=== PATIENT | female | born 1940 | race Caucasian/White ===

== ENCOUNTER 2023-08-17 14:18 | Inpatient (IN) ==
--- NOTE | 2023-08-17 15:02 | ED Triage Note ---
Date of Service August 17, 2023 History of Present Illness This patient was briefly evaluated while in triage. An abbreviated physical exam was performed. This patient is a 83-year-old Female who presents to the ED for evaluation following referral by PCP after abnormal CT abd/pelvis results. 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 Physical Exam Constitutional: alert and oriented x3. no acute distress. HEENT: normocephalic, atraumatic. normal conjunctiva.PERRLA. EOM's grossly intact. Respiratory: lungs are clear to auscultation without wheezes, rhonchi, or rales bilaterally. equal chest rise. normal respiratory effort, no accessory muscle use. Cardiovascular: normal heart sounds without murmur. regular rate and rhythm. GI: abdomen is soft, lower quadrant tenderness. No rebound tenderness or guarding. MSK: moves all 4 extremities spontaneously Psych:appropriate mood and affect. Initial orders for labs and / or imaging were placed and patient was placed in the waiting area until a bed is available. Please see further documentation for the full ED course.
[2023-08-17] MEDS ORDERED: Heparin IV Adult Wt-Based Standard w/ INITIAL Bolus Protocol IV STA (15:41)
[2023-08-17] MEDS ORDERED: Heparin IV Adult Wt-Based Standard w/ INITIAL Bolus Protocol IV SCH (15:50)
[2023-08-17] MEDS ORDERED: HEPARIN SOD (PORCINE) 1000 UNIT/ML IV ONE ×2 (15:56→16:00)
[2023-08-17 15:58] LABS: Basophils # (auto) 0.05 K/uL (0.00-0.20); Basophils % (auto) 0.4 %; Eosinophils # (auto) 0.02 K/uL (0.00-0.50); Eosinophils % (auto) 0.2 %; Hematocrit (blood only) 34.6 % (37.0-47.0); Hemoglobin 11.3 g/dl (12.0-16.0); Immature Granulocytes # (auto) 0.07 K/uL (0.01-0.20); Immature Granulocytes % (auto) 0.6 %; Lymphocytes # (auto) 1.24 K/uL (1.20-3.40); Lymphocytes % (auto) 10.9 %; Mean Corpuscular Hemoglobin 29.3 pg (25.0-34.0); Mean Corpuscular Hgb Conc 32.7 g/dL (32.0-36.0); Mean Corpuscular Volume 89.6 fL (80.0-100.0); Mean Platelet Volume 9.9 fL (9.4-12.4); Monocytes # (auto) 0.95 K/uL (0.11-0.59); Monocytes % (auto) 8.3 %; Neutrophils # (auto) 9.09 K/uL (1.40-6.50); Neutrophils % (auto) 79.6 %; Platelet Count 272 K/uL (130-400); RDW Coefficient of Variation 14.1 % (11.5-14.5); RDW Standard Deviation 45.5 fL (36.4-46.3); Red Blood Count 3.86 M/uL (4.20-5.40); White Blood Count 11.42 K/ul (4.8-10.8)
[2023-08-17 15:58] LABS: iSTAT Creatinine 0.8 mg/dl (0.6-1.3); iSTAT Hemoglobin 11.6 g/dl (12.0-16.0); iSTAT Ionized Calcium 1.19 mmol/l (1.12-1.32); iSTAT Potassium 4.5 mmol/L (3.3-5.0)
[2023-08-17] MEDS ORDERED: HEPARIN SODIUM/DEXTROSE 25,000 UNITS/500 ML BAG IV SCH (16:00)
[2023-08-17] MEDS ORDERED: SODIUM CHLORIDE 0.9% 500 ML IV ONE (16:03)
[2023-08-17 16:14] LABS: Albumin Globulin Ratio 1.5 (0.9-2); Albumin Level 4.1 gm/dl (3.4-5.0); BUN Creatinine Ratio 28.2 (10-20); Bilirubin,Total 0.6 mg/dl (0.2-1.0); Calcium 9.3 mg/dl (8.6-10.3); Creatinine Clr Calc Pharmacy 44.8 ml/min; Est GFR (African American) 73.4 ml/min; Est GFR (Non-African American) 63.4 ml/min; Globulin 2.7 gm/dl (2.5-4.0); Potassium 4.4 mmol/L (3.5-5.1); Total Protein 6.8 gm/dl (6.0-8.3)
[2023-08-17 16:19] LABS: Troponin I High Sensitivity 7.3 pg/ml (0-14)
[2023-08-17 16:38] LABS: INR 1.1 (0.9-1.1); Partial Thromboplastin Time 27.1 Seconds (21.0-31.0); Prothrombin Time 11.6 Seconds (9.0-12.0)
--- NOTE | 2023-08-17 16:44 | XRay Report ---
SINGLE VIEW CHEST CLINICAL HISTORY: Metastatic disease. FINDINGS: An AP, portable, upright chest radiograph is compared to study dated 06/21/2013. Correlation is made with today's abdominal CT scan. The cardiomediastinal silhouette is unremarkable. Numerous p ulmonary nodules are seen throughout both lungs. There are small pleural effusions with bibasilar con solidation. No pneumothorax is seen. The skeletal structures are osteopenic. The bony thorax is gross ly intact. IMPRESSION: 1. Small pleural effusions with bibasilar consolidation. This results atelectasis and metastatic pleu ral disease when correlated with today's CT scan. 2. Additional pulmonary metastases are seen throughout both lungs. ACT 112: Negative or not required by law. Electronically signed by: William Diez M.D. 08/17/2023 4:43 PM
--- NOTE | 2023-08-17 17:12 | Emergency Department Note ---
Impression & Plan Pulmonary embolism, Abdominal malignancy ED Provider Note NAME: VLADIMIR WHEAT AGE: 83 SEX: F : 1940 ARRIVES VIA: Walk-In INFORMANT: Patient ED PROVIDER(S): Michael Savage DO CHIEF COMPLAINT: PEs HPI: Patient is an 83-year-old female who presents to the ER referred in for blood clots in the lungs as well as [place] diagnosed cancer. She notes that she has been having some abdominal pain and swelling for the past month. She denies any headache or change in vision. She does not think that she is short of breath. No chest pain. No dysuria, urgency, or frequency. She denies any history of any cancer. ADDITIONAL HISTORY OBTAINED: Per HPI Chronic Medical/Social Conditions Affecting Care: Per HPI PAST MEDICAL HISTORY:See Below PAST SURGICAL HISTORY:See Below FAMILY HISTORY:See Below SOCIAL HISTORY:See Below HOME MEDICATIONS:See Below ALLERGIES:See Below VITALS:See Below PHYSICAL EXAMINATION: GENERAL: Sitting up in bed, alert, well appearing, well nourished, no distress, non-toxic EYE EXAM: normal conjunctiva. OROPHARYNX: mucous membranes are moist LUNGS: Clear to auscultation. Normal chest wall mechanics HEART: no murmurs, S1 normal and S2 normal ABDOMEN: abdomen soft, non-tender, normo-active bowel sounds, no masses, no rebound or guarding. UPPER EXTREMITIES: upper extremities are grossly normal. LOWER EXTREMITIES: No pitting edema. NEURO EXAM: Normal sensorium, cranial nerves II-XII grossly intact, normal speech, no gross weakness of arms, no gross weakness of legs. MEDICAL DECISION MAKING: Patient is an 83-year-old female who presents ER for above-stated complaint. IV was established blood work is obtained. Labs show mild leukocytosis 11,000. Mild anemia 11.3. INR unremarkable. BMP with a CO2 of 20. LFTs bilirubin was unremarkable. Troponin was negative. Lipase was normal. She was mildly tachycardic. She is not hypoxic. She was given IV fluids. She denies any coughing up blood, vomiting blood, urinating blood or black/dark tarry stools. No bright red blood per rectum. No recent trauma or surgery. She was placed on heparin drip and given a bolus. She was updated bedside. Chest x-ray was obtained. She was discussed with Dr. Lázaro Tinajero for new onset cancer and newly diagnosed PEs. External Records Reviewed: CT performed from earlier today was reviewed and showed PEs and abdominal cancer Consults/Care Managements Discussions: Per MDM Triage Nursing notes reviewed. Limited review of prior medical records performed Vital Signs: reviewed and remarkable for tachycardic Differential diagnosis: Differential diagnoses includes but is not limited to pneumonia, bronchitis, COPD/Asthma exacerbation, pneumothorax, pulmonary embolism, congestive heart failure, acute coronary syndrome ER treatment provided: See below Diagnostics interpreted by me include EKG and cardiac monitoring as listed below: -Cardiac Monitoring: An order was placed for continuous cardiac monitoring. The monitor shows a rate of 90 with sinus rhythm. -ECG: Sinus rhythm rate of 94 Normal axis No PVCs Low voltage QTc 375 -Laboratory studies:Interpreted by me as stated above in MDM and shown below. Imaging studies: Xrays: As interpreted by me: Portable AP upright 1 view of the chest shows pulmonary edema and questionable infiltrates likely metastatic lesions CTs show: none Procedures:none Critical Care: I have personally spent 31 minutes of critical care time in the direct management of this patient. This includes bedside care, interpretation of diagnostic studies, and testing, discussion with consultants, patient, and family members, and other required patient management activities. This 31 minutes is in excess of all separately billable procedures. Past Med/Surg History Medical History (Updated 08/17/23 @ 17:12 by Michael aSvage DO) Diarrhea Nausea Social History Smoking Status: Former smoker Preferred Language: Yakut Feels Safe at Home: Yes Allergies Allergies Allergy/AdvReac Type Severity Reaction Status Date / Time Penicillins Allergy Intermediate rash Verified 08/17/23 15:59 Sulfa (Sulfonamide AdvReac Intermediate lower ext Verified 08/17/23 15:59 Antibiotics) leg numbness Home Meds Home Medications Medication Instructions Recorded Confirmed aspirin 81 mg tablet,delayed 81 mg PO 3XWK 07/29/23 08/17/23 release (Adult Low Dose Aspirin) atorvastatin 80 mg tablet (Lipitor) 40 mg PO DAILY 07/29/23 08/17/23 clopidogrel 75 mg tablet (Plavix) 75 mg PO DAILY 07/29/23 08/17/23 metformin 1,000 mg tablet 1,000 mg PO BID 07/29/23 08/17/23 metoprolol succinate 25 mg 25 mg PO QPM 07/29/23 08/17/23 tablet,extended release 24 hr omega 4-tay-oxo-fish oil 1,000 mg 1 cap PO DAILY 07/29/23 08/17/23 (120 mg-180 mg) capsule (Fish Oil) pantoprazole 40 mg tablet,delayed 40 mg PO DAILY 07/29/23 08/17/23 release potassium chloride 20 mEq 10 meq PO DAILY 07/29/23 08/17/23 tablet,extended release furosemide 20 mg tablet 20 mg PO DAILY 08/17/23 08/17/23 magnesium oxide 250 mg PO BID 08/17/23 08/17/23 Results & Data (ED) Vital Signs Vital Signs - 24 hr 08/17/23 14:54 08/17/23 15:25 08/17/23 15:30 Temperature 36.4 C L Temperature Source Oral Pulse Rate 104 H 99 H 97 H Pulse Rate from SpO2 Sensor 100 H Respiratory Rate 18 20 18 Blood Pressure 142/82 H Blood Pressure Mean 102 Pulse Oximetry 98 97 Oxygen Delivery Method Room Air Sepsis New/Unexplained Change in Mental Status No Sepsis Action Taken by Nursing No Action Required 08/17/23 15:33 08/17/23 15:34 08/17/23 15:34 Temperature Temperature Source Pulse Rate 97 H 96 H Pulse Rate from SpO2 Sensor Respiratory Rate 18 Blood Pressure 151/81 H Blood Pressure Mean 118 Pulse Oximetry Oxygen Delivery Method Sepsis New/Unexplained Change in Mental Status Sepsis Action Taken by Nursing 08/17/23 16:00 08/17/23 16:00 08/17/23 16:30 Temperature Temperature Source Pulse Rate 93 H Pulse Rate from SpO2 Sensor Respiratory Rate 20 Blood Pressure 151/77 H 141/98 H Blood Pressure Mean 117 116 Pulse Oximetry Oxygen Delivery Method Sepsis New/Unexplained Change in Mental Status Sepsis Action Taken by Nursing 08/17/23 16:30 Temperature Temperature Source Pulse Rate 96 H Pulse Rate from SpO2 Sensor 95 H Respiratory Rate 20 Blood Pressure Blood Pressure Mean Pulse Oximetry 97 Oxygen Delivery Method Sepsis New/Unexplained Change in Mental Status Sepsis Action Taken by Nursing Laboratory Data 08/17/23 15:35 08/17/23 15:35 Lab Results 08/17/23 08/17/23 Range/Units 15:35 15:40 WBC 11.42 H (4.8-10.8) K/ul RBC 3.86 L (4.20-5.40) M/uL Hgb 11.3 L (12.0-16.0) g/dl POC Hgb 11.6 L (12.0-16.0) g/dl Hct 34.6 L (37.0-47.0) % POC Hct 34 L (37-47) % MCV 89.6 (80.0-100.0) fL MCH 29.3 (25.0-34.0) pg MCHC 32.7 (32.0-36.0) g/dL RDW Std Deviation 45.5 (36.4-46.3) fL RDW Coeff of Leonard 14.1 (11.5-14.5) % Plt Count 272 (130-400) K/uL MPV 9.9 (9.4-12.4) fL Immature Gran % (Auto) 0.6 % Neut % (Auto) 79.6 % Lymph % (Auto) 10.9 % [place] % (Auto) 8.3 % Eos % (Auto) 0.2 % Baso % (Auto) 0.4 % Neut # (Auto) 9.09 H (1.40-6.50) K/uL Lymph # (Auto) 1.24 (1.20-3.40) K/uL Whitfield # (Auto) 0.95 H (0.11-0.59) K/uL Eos # (Auto) 0.02 (0.00-0.50) K/uL Baso # (Auto) 0.05 (0.00-0.20) K/uL Immature Gran # (Auto) 0.07 (0.01-0.20) K/uL PT 11.6 (9.0-12.0) Seconds INR 1.1 (0.9-1.1) APTT 27.1 (21.0-31.0) Seconds PTT Ratio 1.0 POC Sodium 134 L (135-144) mmol/L Sodium 134 L (136-145) mmol/L POC Potassium 4.5 (3.3-5.0) mmol/L Potassium 4.4 (3.5-5.1) mmol/L POC Chloride 105 (101-112) mmol/L Chloride 103 (98-107) mmol/L Carbon Dioxide 20 L (21-32) mmol/L POC Total CO2 20 L (24-31) mmol/L Anion Gap 11 (3-11) POC Anion Gap 15.0 L (16-25) mmol/L POC BUN 23 H (7-18) mg/dl BUN 24 H (6-23) mg/dl Creatinine 0.85 (0.6-1.2) mg/dl POC Creatinine 0.8 (0.6-1.3) mg/dl Est Cr Clr Drug Dosing 44.8 ml/min Est GFR ( Amer) 73.4 ml/min Est GFR (Non-Af Amer) 63.4 ml/min BUN/Creatinine Ratio 28.2 H (10-20) Glucose 131 H (70-99(Fasting)) mg/dl POC Glucose (other) 132 H (70-99) mg/dl Calcium 9.3 (8.6-10.3) mg/dl POC Ioniz Calcium Ed 1.19 (1.12-1.32) mmol/l Total Bilirubin 0.6 (0.2-1.0) mg/dl AST 22 (13-39) U/L ALT 14 (7-52) U/L Alkaline Phosphatase 132 H (34-104) U/L Troponin I High Sens 7.3 (0-14) pg/ml Total Protein 6.8 (6.0-8.3) gm/dl Albumin 4.1 (3.4-5.0) gm/dl Globulin 2.7 (2.5-4.0) gm/dl Albumin/Globulin Ratio 1.5 (0.9-2) Lipase 52 (11-82) U/L Administered Medications Heparin Sodium/Dextrose (Heparin Sodium/Dextrose) 25,000 units in 500 mls @ 20 mls/hr IV .Q24H [facility]; Protocol Stop: 09/16/23 15:59 Last Admin: 08/17/23 16:23 Dose: 1,000 units/hr, 20 mls/hr Documented By: BO Co-signed By: JUVENTINO Discontinued Medications Heparin Sodium (Porcine) (Heparin Sod (Porcine) 1000 Unit/Ml) 5,000 units IV NOW ONE Stop: 08/17/23 16:01 Last Admin: 08/17/23 16:24 Dose: 5,000 units Documented By: BO Co-signed By: JUVENTINO Sodium Chloride (Nss) 500 mls @ 999 mls/hr IV .Q31M ONE Stop: 08/17/23 16:33 Last Admin: 08/17/23 16:24 Dose: 999 mls/hr Documented By: DS Imaging Data Radiologist's Impression: Chest X-Ray 08/17/23 15:52 SINGLE VIEW CHEST CLINICAL HISTORY: Metastatic disease. FINDINGS: An AP, portable, upright chest radiograph is compared to study dated 06/21/2013. Correlation is made with today's abdominal CT scan. The cardiomediastinal silhouette is unremarkable. Numerous pulmonary nodules are seen throughout both lungs. There are small pleural effusions with bibasilar consolidation. No pneumothorax is seen. The skeletal structures are osteopenic. The bony thorax is grossly intact. IMPRESSION: 1. Small pleural effusions with bibasilar consolidation. This results atelectasis and metastatic pleural disease when correlated with today's CT scan. 2. Additional pulmonary metastases are seen throughout both lungs. ACT 112: Negative or not required by law. Electronically signed by: William Diez M.D. 08/17/2023 4:43 PM Discharge Plan Visit Data Chief Complaint: Abnormal Labs/Diagnostic Testing Stated Complaint: ABNORMAL CT SCAN ED Provider: Michael Savage Discharge Problem: Pulmonary embolism, Abdominal malignancy Forms Stand Alone Forms: [facility] Prescriptions Prescriptions: No Action pantoprazole 40 mg tablet,delayed release (DR/EC) 40 mg PO DAILY omega 0-zij-uim-fish oil [Fish Oil] 1,000 mg (120 mg-180 mg) capsule 1 cap PO DAILY aspirin [Adult Low Dose Aspirin] 81 mg tablet,delayed release (DR/EC) 81 mg PO 3XWK Rx Instructions: Mon, wed, fri atorvastatin [Lipitor] 80 mg tablet 40 mg PO DAILY Rx Instructions: Patient says she takes a half tab daily. metoprolol succinate 25 mg tablet extended release 24 hr 25 mg PO QPM metformin 1,000 mg tablet 1,000 mg PO BID clopidogrel [Plavix] 75 mg tablet 75 mg PO DAILY potassium chloride 20 mEq tablet extended release 10 meq PO DAILY Rx Instructions: States she takes 1/2 daily magnesium oxide 250 mg magnesium tablet 250 mg PO BID furosemide 20 mg tablet 20 mg PO DAILY Referrals Referrals: Katerine Chang CRNP [Primary Care Provider] - Discharge Problem: Pulmonary embolism Qualifiers: Pulmonary embolism type: unspecified Chronicity: acute Acute cor pulmonale presence: unspecified Qualified Code(s): I26.99 - Other pulmonary embolism without acute cor pulmonale
--- NOTE | 2023-08-17 18:14 | History & Physical Report ---
Date of Service August 17, 2023 Assessment & Plan (1) Pulmonary embolism: Plan: -Admit to the PCU on tele and pulse oximetry -Currently hemodynamically, stable on RA, and asymptomatic -Outpatient CT of the abd/pelvis revealed new metastatic disease of unknown origin and BL PE's with trace right pleural effusion -Started on a heparin drip in the ED, will continue for now -Will obtain BL venous dopplers, TTE -Will order am CT chest with PE protocol for further evaluation tomorrow to reduce the amount of CT contrast in 24 hours -Heparin drip for DVT PPX -HH/DMII diet -AM CBC, CMP, Mag, PT/INR (2) Abdominal malignancy: Plan: -Noted on Ct of the abd/pelvis today -Chest xray shows pulmonary metastases as well -Will order CA-125 and CA 19-9 tonight -Oncology consult placed -Will need biopsy for staging prior to discharge (3) Cancer with pulmonary metastases: Plan: -See abdominal metastases (4) Diarrhea: Plan: -Likely related to her newly diagnosed malignancy -No recent abx use -No episodes since arrival -Will hold antidiarrheals for now, can start if diarrhea resumes (5) CAD (coronary artery disease): Plan: -Continue aspirin, plavix, and metoprolol (6) DMII (diabetes mellitus, type 2): Plan: -Hold metformin -monitor BSG ACHS, goal is 110-140 -Start 5 units lantus BID, CF 50 ACHS -DMII/HH diet -Adjust regimen as needed Plan The patient was discussed with Dr. Tinajero at the time of the admission History of Present Illness Chief Complaint: Abnormal outpatient CT findings Primary Care Provider: JONI Gomez is an 83 year old female with a PMH significant for DMII, CAD S/P MA in Aug 2022, hyperlipidemia, and GERD who presented to the [facility] ED on 08/17 at the recommendation of her PCP after having abnormal findings on outpatient Ct of the abd/pelvis earlier today. Per chart review, the patient went to see her PCP for multiple weeks of lower abdominal pain and diarrhea. Her PCP ordered a CT of the abd/pelvis w/con today which shows "1. 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 Small to moderate abdominal and pelvic ascites. The findings represent peritoneal spread of tumor. The primary tumor is not definitively identified however ovarian carcinoma is favored on a statistical basis. However, a pancreatic primary cannot be excluded given p ancreatic ductal dilatation with abrupt cut off of the duct. No discrete pancreatic lesion by CT. These findings will be called/faxed to the ordering provider at time of dictation. 2. Numerous pleural and pulmonary metastases within the lower chest. Trace right pleural effusion. 3. Multiple subsegmental pulmonary emboli within the lower lungs. 4. No evidence for a bowel obstruction. Sigmoid diverticulosis. No evidence for acute diverticulitis.". She remained stable while in the ED. Labs were significant for a leukocytosis of 11 with neutrophil predominance of 9, and alk phos of 132. Chest xray was read as "1. Small pleural effusions with bibasilar consolidation. This results atelectasis and metastatic pleural disease when correlated with today's CT scan. 2. Additional pulmonary metastases are seen throughout both lungs.". Prior to admission the patient was given a 500 mL NSS bolus and started on a heparin drip. At the time of the exam the patient was sitting in bed in no acute distress with her family sitting bedside, history was obtained from all. She states that she has been having lower abdominal pain and non-bloody diarrhea for the past 2- 3 weeks. Of note, the patient's family states that since her MA last August she has been having issues with diarrhea which were initially thought to be due medication changes. She has lost approximately 30 lbs over the past 6 months. O khalida the past 2-3 months the patient has been having progressive earlier satiety and the feeling being full quickly after eating small amounts of food. She denies the sensation of food getting stuck while swallowing. She denies recent fever, chills, changes in vision, hearing, taste, smell, cough, SOB, vomiting, dysuria, hematuria, melena, bloody BM's, LE swelling , and recent trauma. I explained the findings of the CT abd/pelvis and the chest xray being concerning for metastatic cancer of unknown source at this time. I explained that we will get Oncology on board to assist with further evaluation and workup. We discussed code status, the patient wishes to be a Full Code for now. She would want her sons, Zully Stewart ([phone]) and Easton Stewart Garza ([phone]) to make medical decisions for her if she cannot make them herself. Please refer to Dr. Tinajero's attestation for any changes to the treatment plan Allergies Allergy/AdvReac Type Severity Reaction Status Date / Time Penicillins Allergy Intermediate rash Verified 08/17/23 15:59 Sulfa (Sulfonamide AdvReac Intermediate lower ext Verified 08/17/23 15:59 Antibiotics) leg numbness Home Medications Medication Instructions Recorded Confirmed Type aspirin 81 mg tablet,delayed 81 mg PO 3XWK 07/29/23 08/17/23 History release (Adult Low Dose Aspirin) atorvastatin 80 mg tablet (Lipitor) 40 mg PO DAILY 07/29/23 08/17/23 History clopidogrel 75 mg tablet (Plavix) 75 mg PO DAILY 07/29/23 08/17/23 History metformin 1,000 mg tablet 1,000 mg PO BID 07/29/23 08/17/23 History metoprolol succinate 25 mg 25 mg PO QPM 07/29/23 08/17/23 History tablet,extended release 24 hr omega 8-hwq-nnh-fish oil 1,000 mg 1 cap PO DAILY 07/29/23 08/17/23 History (120 mg-180 mg) capsule (Fish Oil) pantoprazole 40 mg tablet,delayed 40 mg PO DAILY 07/29/23 08/17/23 History release potassium chloride 20 mEq 10 meq PO DAILY 07/29/23 08/17/23 History tablet,extended release furosemide 20 mg tablet 20 mg PO DAILY 08/17/23 08/17/23 History magnesium oxide 250 mg PO BID 08/17/23 08/17/23 History Past Med/Surg History Medical History (Updated 08/17/23 @ 18:51 by Yair Dempsey PA-C) Diarrhea Nausea Social History Smoking Status: Never smoker Hx Alcohol Use: No Hx Substance Use: No Preferred Language: Turkmen Communication Ability: Effective Can Slider Required: No Beliefs That Will Affect Care: None Current Living Situation: Spouse Other Information That Helps Us Care for You: No Feels Safe at Home: Yes Safety Concerns: Feels Safe At This Time Assistive Devices: Denture - Upper and Glasses Physical Exam Physical Exam: Physical Exam: General: In no acute distress, stated age, well-nourished, good hygiene HEENT: Normocephalic, atraumatic, no scleral icterus, pupils around round, symmetrical, and reactive to light, moist mucus membranes, trachea midline, no thyromegaly Chest/Pulm: No respiratory distress, symmetrical chest expansion, scattered expiratory wheezing throughout Cardiac: RRR, no murmurs noted Abdomen: Negative for ascites and bruising, normoactive bowel sounds, soft, n on-tender to palpation throughout Musculoskeletal: Symmetrical and without signs of acute trauma, upper and lower extremities with full ROM, no atrophy, spasticity, or flaccidity Extremities: Radial, dorsalis pedis, and posterior tibial pulses are intact and symmetrical, no edema noted in the BL LE's Skin: Warm, dry, no rashes , lesions, or scars noted Neuro: Alert and oriented to person, place, month, year, and president, no focal defects, no tremors noted Psych: No acute distress, calm and cooperative during the exam Results & Data Results & Data Vital Signs (Past 12 Hours) Vital Signs Temp Pulse Resp BP Pulse Ox O2 Del Method 08/17/23 17:00 99 H 20 98 08/17/23 17:00 162/87 H 08/17/23 16:30 96 H 20 97 08/17/23 16:30 141/98 H 08/17/23 16:00 151/77 H 08/17/23 16:00 93 H 20 08/17/23 15:34 96 H 18 08/17/23 15:34 151/81 H 08/17/23 15:33 97 H 08/17/23 15:30 97 H 18 08/17/23 15:25 99 H 20 97 08/17/23 14:54 36.4 C L 104 H 18 142/82 H 98 Room Air Laboratory Results Abnormal lab results 08/17/23 08/17/23 Range/Units 15:35 15:40 WBC 11.42 H (4.8-10.8) K/ul RBC 3.86 L (4.20-5.40) M/uL Hgb 11.3 L (12.0-16.0) g/dl POC Hgb 11.6 L (12.0-16.0) g/dl Hct 34.6 L (37.0-47.0) % POC Hct 34 L (37-47) % Neut # (Auto) 9.09 H (1.40-6.50) K/uL [place] # (Auto) 0.95 H (0.11-0.59) K/uL POC Sodium 134 L (135-144) mmol/L Sodium 134 L (136-145) mmol/L Carbon Dioxide 20 L (21-32) mmol/L POC Total CO2 20 L (24-31) mmol/L POC Anion Gap 15.0 L (16-25) mmol/L POC BUN 23 H (7-18) mg/dl BUN 24 H (6-23) mg/dl BUN/Creatinine Ratio 28.2 H (10-20) Glucose 131 H (70-99(Fasting)) mg/dl POC Glucose (other) 132 H (70-99) mg/dl Alkaline Phosphatase 132 H (34-104) U/L Diagnostic Findings Chest X-Ray 08/17/23 15:52 SINGLE VIEW CHEST CLINICAL HISTORY: Metastatic disease. FINDINGS: An AP, portable, upright chest radiograph is compared to study dated 06/21/2013. Correlation is made with today's abdominal CT scan. The cardiomediastinal silhouette is unremarkable. Numerous pulmonary nodules are seen throughout both lungs. There are small pleural effusions with bibasilar consolidation. No pneumothorax is seen. The skeletal structures are osteopenic. The bony thorax is grossly intact. IMPRESSION: 1. Small pleural effusions with bibasilar consolidation. This results atelectasis and metastatic pleural disease when correlated with today's CT scan. 2. Additional pulmonary metastases are seen throughout both lungs. ACT 112: Negative or not required by law. Electronically signed by: William Diez M.D. 08/17/2023 4:43 PM ECG Additional Comments: Normal sinus rhythm Nonspecific T wave abnormality Abnormal ECG When compared with ECG of 21-JUN-2013 09:06, Vent. rate has increased BY 40 BPM QRS voltage has decreased Nonspecific T wave abnormality now evident in Inferior leads T wave inversion now evident in Lateral leads Code Status & VTE Plan Code Status Full code VTE Prophylaxis Plan VTE Prophylaxis will be ordered: Yes Supervising Physician Co-Signing Physician Notes I personally saw and examined the patient. I verified all nunez points and agree with Yair Dempsey PA-C with the following exceptions and/or additions: 83 year old female presents to the ER following incidental nut picker of pulmonary emboli on CT A/P. Also noted suspected metastatic disease on this scan which is new. Scan performed for significant weight loss and intermittent abdominal pain. No chest pain or shortness of breath. No calf pain. O/E Frail appearing, HS RRR, no murmurs, Chest CTAB, Abdo mild generalized tenderness without guarding or rebound A/P Pulmonary Embolism - IV heparin. CT for PE tomorrow as long as Cr stable. US venous doppler. Suspect from hypercoagulable condition from metastatic cancer. Stop clopidogrel while on heparin - it has been almost a year since her stent irregardless Suspected metastatic disease - CT chest for PE, consult oncology to assess best place for biopsy. If PE burden not significant on CT for PE consider in house biopsy as can temporarily hold her heparin. Ca 19.9 and Ca 125 markers sent. Patient with a notable family history of pancreatic cancer with her brother. PG Care Time/CCT Total # of Minutes Spent Total Time Spent with Patient: Total time spent is greater than 50% in coordination of care (as documented) at patient's floor/unit and/or counseling patient: [place] [address] INT INP/OBS CARE 3/75MIN Patient Type New Medical Decision Making Moderate Complexity Diagnoses Pulmonary embolism I26.99 Acute cor pulmonale presence: unspecified Chronicity: acute Pulmonary embolism type: unspecified Abdominal malignancy C76.2 Cancer with pulmonary metastases C78.00 Diarrhea R19.7 CAD (coronary artery disease) I25.10 DMII (diabetes mellitus, type 2) E11.9 (1) Pulmonary embolism Acute cor pulmonale presence: unspecified Chronicity: acute Pulmonary embolism type: unspecified Qualified Code(s): I26.99 - Other pulmonary embolism without acute cor pulmonale
[2023-08-17] MEDS ORDERED: ACETAMINOPHEN 325 MG TAB PO PRN (18:33)
[2023-08-17] MEDS ORDERED: GLUCOSE 40% GEL 15 GM TUBE PO PRN (18:51)
[2023-08-17] MEDS ORDERED: GLUCAGON FOR INJ 1 MG VIAL SQ PRN (18:51)
[2023-08-17] MEDS ORDERED: CARBOHYDRATES FOR HYPOGLYCEMIA PO PRN (18:51)
[2023-08-17] MEDS ORDERED: DEXTROSE 50% 50 ML SYRINGE IV PRN (18:51)
[2023-08-17] MEDS ORDERED: GLUCOSE 10 TAB/TUBE PO PRN (18:51)
[2023-08-17] MEDS: METOPROLOL SUCC 25MG EXT REL TAB PO SCH (20:19)
[2023-08-17] MEDS: MAGNESIUM OXIDE 400 MG TAB PO SCH (20:24)
[2023-08-17] MEDS ORDERED: LANTUS PER UNIT CHARGE SQ SCH (21:00)
[2023-08-17] MEDS: INSULIN ASPART PER UNIT CHARGE SC SCH (21:30)
[2023-08-17 23:47] LABS: Partial Thromboplastin Ratio 4.4
[2023-08-18 00:16] LABS: Partial Thromboplastin Time 125.3 Seconds (21.0-31.0)
[2023-08-18 04:41] LABS: Appearance Urine Clear (Clear); Bilirubin Urine Negative (Negative); Blood Urine Negative (Negative); Color Urine Yellow; Glucose Urine UA Negative (Negative); Ketones Urine Negative (Negative); Leukocyte Esterase Urine Negative (Negative); Nitrite Urine Negative (Negative); Protein Urine Negative (Negative); Specific Gravity Urine 1.011 (1.000-1.030); Urobilinogen Urine Negative (Negative); pH Urine 5.5 (4.5-7.5)
--- NOTE | 2023-08-18 05:54 | Ultrasound Report ---
Exam(s): US VENOUS BILATERAL LOWER EXTREMITIES EXAM: US Duplex Bilateral Lower Extremities Veins CLINICAL HISTORY: Reason for exam: New PE's, please monitor for DVT's. TECHNIQUE: Real-time duplex ultrasound scan of the bilateral lower extremity veins integrating B-mode two-dimensional vascular structure, Doppler spectral analysis, color flow Doppler imaging and compression. COMPARISON: No relevant prior studies available. FINDINGS: Right deep veins: Occlusive thrombus within the right proximal femoral vein. Occlusive thrombus within the first duplicated right popliteal vein. Occlusive thrombus within the right posterior tibial vein. Right superficial veins: Unremarkable. No thrombus in the visualized right great saphenous vein. Left deep veins: Occlusive thrombus within the left peroneal vein. Left superficial veins: Unremarkable. No thrombus in the visualized left great saphenous vein. Soft tissues: No acute findings. No popliteal cyst. IMPRESSION: 1. Occlusive thrombus within the right proximal femoral vein. 2. Occlusive thrombus within the first duplicated right popliteal vein. 3. Occlusive thrombus within the right posterior tibial vein. 4. Occlusive thrombus within the left peroneal vein. Electronically signed by: Killian Clarke MD 08/18/23 05:53 AM
[2023-08-18 06:43] LABS: Basophils # (auto) 0.06 K/uL (0.00-0.20); Basophils % (auto) 0.7 %; Eosinophils # (auto) 0.07 K/uL (0.00-0.50); Eosinophils % (auto) 0.8 %; Hematocrit (blood only) 31.5 % (37.0-47.0); Hemoglobin 10.3 g/dl (12.0-16.0); Immature Granulocytes # (auto) 0.06 K/uL (0.01-0.20); Immature Granulocytes % (auto) 0.7 %; Lymphocytes # (auto) 1.22 K/uL (1.20-3.40); Lymphocytes % (auto) 13.9 %; Mean Corpuscular Hemoglobin 29.3 pg (25.0-34.0); Mean Corpuscular Hgb Conc 32.7 g/dL (32.0-36.0); Mean Corpuscular Volume 89.5 fL (80.0-100.0); Mean Platelet Volume 9.9 fL (9.4-12.4); Monocytes # (auto) 0.92 K/uL (0.11-0.59); Monocytes % (auto) 10.5 %; Neutrophils # (auto) 6.47 K/uL (1.40-6.50); Neutrophils % (auto) 73.4 %; Platelet Count 238 K/uL (130-400); RDW Coefficient of Variation 14.2 % (11.5-14.5); RDW Standard Deviation 46.1 fL (36.4-46.3); Red Blood Count 3.52 M/uL (4.20-5.40)
[2023-08-18 06:58] LABS: Albumin Globulin Ratio 1.5 (0.9-2); Albumin Level 3.4 gm/dl (3.4-5.0); BUN Creatinine Ratio 19.5 (10-20); Bilirubin,Total 0.6 mg/dl (0.2-1.0); Calcium 8.5 mg/dl (8.6-10.3); Est GFR (African American) 76.7 ml/min; Est GFR (Non-African American) 66.2 ml/min; Globulin 2.3 gm/dl (2.5-4.0); Magnesium 1.5 mg/dl (1.7-2.4); Potassium 4.2 mmol/L (3.5-5.1); Total Protein 5.7 gm/dl (6.0-8.3)
[2023-08-18 07:24] LABS: INR 1.1 (0.9-1.1); Partial Thromboplastin Ratio 1.9; Prothrombin Time 11.8 Seconds (9.0-12.0)
[2023-08-18 07:25] LABS: Partial Thromboplastin Time 53.2 Seconds (21.0-31.0)
--- NOTE | 2023-08-18 08:09 | Oncology Consultation ---
Date of Consultation August 18, 2023 History of Present Illness Attending Physician: José Miguel Rudolph MD Allergies Allergy/AdvReac Type Severity Reaction Status Date / Time Penicillins Allergy Intermediate rash Verified 08/17/23 15:59 Sulfa (Sulfonamide AdvReac Intermediate lower ext Verified 08/17/23 15:59 Antibiotics) leg numbness Home Medications Medication Instructions Recorded Confirmed Type aspirin 81 mg tablet,delayed 81 mg PO 3XWK 07/29/23 08/17/23 History release (Adult Low Dose Aspirin) atorvastatin 80 mg tablet (Lipitor) 40 mg PO DAILY 07/29/23 08/17/23 History clopidogrel 75 mg tablet (Plavix) 75 mg PO DAILY 07/29/23 08/17/23 History metformin 1,000 mg tablet 1,000 mg PO BID 07/29/23 08/17/23 History metoprolol succinate 25 mg 25 mg PO QPM 07/29/23 08/17/23 History tablet,extended release 24 hr omega 7-rbu-avb-fish oil 1,000 mg 1 cap PO DAILY 07/29/23 08/17/23 History (120 mg-180 mg) capsule (Fish Oil) pantoprazole 40 mg tablet,delayed 40 mg PO DAILY 07/29/23 08/17/23 History release potassium chloride 20 mEq 10 meq PO DAILY 07/29/23 08/17/23 History tablet,extended release furosemide 20 mg tablet 20 mg PO DAILY 08/17/23 08/17/23 History magnesium oxide 250 mg PO BID 08/17/23 08/17/23 History Patient History Medical History (Updated 08/17/23 @ 18:51 by Yair Dempsey PA-C) Diarrhea Nausea Social History Smoking Status: Never smoker Hx Alcohol Use: No Hx Substance Use: No Preferred Language: Omani Communication Ability: Effective Trophy Assembler Required: No Beliefs That Will Affect Care: None Current Living Situation: Spouse Other Information That Helps Us Care for You: No Feels Safe at Home: Yes Safety Concerns: Feels Safe At This Time Assistive Devices: Denture - Upper and Glasses Results & Data Vital Signs (Past 12 Hours) Vital Signs Temp Pulse Pulse Resp BP BP Pulse Ox 08/18/23 08:00 36.7 C 81 18 128/64 96 08/18/23 02:55 36.8 C 69 18 124/61 96 08/18/23 01:35 71 08/18/23 01:20 36.7 C 79 16 137/70 96 08/18/23 00:00 83 18 96 08/17/23 23:00 92 H 27 H 160/77 H 94 O2 Del Method 08/18/23 08:00 Room Air 08/18/23 02:55 Room Air 08/18/23 01:35 08/18/23 01:20 Room Air 08/18/23 00:00 Room Air 08/17/23 23:00 Room Air
[2023-08-18] MEDS ORDERED: CLOPIDOGREL BISULFATE 75 MG TAB PO SCH (09:00)
[2023-08-18] MEDS: ATORVASTATIN 40 MG TAB PO SCH (09:06)
[2023-08-18] MEDS: MAGNESIUM OXIDE 400 MG TAB PO SCH ×2 (09:07→22:07)
[2023-08-18] MEDS: PANTOprazole 40 MG TAB PO SCH (09:07)
[2023-08-18] MEDS: INSULIN ASPART PER UNIT CHARGE SC SCH ×4 (09:14→22:07)
[2023-08-18] MEDS: MAGNESIUM SULFATE / D5W 1 GM/100 ML BAG IV SCH ×2 (09:56→11:31)
[2023-08-18 10:23] LABS: Partial Thromboplastin Ratio 1.9
[2023-08-18 10:43] LABS: Partial Thromboplastin Time 54.9 Seconds (21.0-31.0)
--- NOTE | 2023-08-18 11:39 | XCELERA ---
[id number]
--- NOTE | 2023-08-18 13:55 | Electrocardiogram Report ---
Test Reason : Blood Pressure : / mmHG Vent. Rate : 094 BPM Atrial Rate : 094 BPM P-R Int : 132 ms QRS Dur : 074 ms QT Int : 300 ms P-R-T Axes : 115 004 063 degrees QTc Int : 375 ms Normal sinus rhythm Nonspecific T wave abnormality Abnormal ECG When compared with ECG of 21-JUN-2013 09:06, Vent. rate has increased BY 40 BPM QRS voltage has decreased Nonspecific T wave abnormality now evident in Inferior leads T wave inversion now evident in Lateral leads Confirmed by River Rizo ([id number]) on 08/18/2023 1:54:55 PM Referred By: Confirmed By:Luis Angel Rizo
[2023-08-18] MEDS ORDERED: ENOXAPARIN 1 MG/KG SC SCH (14:15)
[2023-08-18] MEDS ORDERED: HEPARIN STOP ORDER ONE (15:00)
[2023-08-18] MEDS: ENOXAPARIN INJ 60 MG/0.6 ML SYR SQ SCH (15:10)
--- NOTE | 2023-08-18 16:57 | Hospitalist Progress Note ---
Date of Service August 18, 2023 Assessment & Plan (1) Pulmonary embolism: Plan: Incidental finding seen on recent outpatient abdominal CT scan. She is not hypoxic. She was placed on a heparin drip on admission and this will be switched to Lovenox 1 mg/kg subcutaneously every 12 hours. Oncology consultation has been canceled because we do not have a diagnosis yet. Unfortunately, peritoneal implant biopsy cannot be done because she is on Plavix which has been discontinued. She probably will be discharged tomorrow, August 19 and follow-up with her PCP who can arrange further outpatient diagnostic measures and eventual oncology referral. (2) DVT, bilateral lower limbs: Plan: Seen on venous Doppler evaluation. This is undoubtedly malignancy related. Heparin drip will be switched to Lovenox 1 mg/kg subcutaneously every 12 hours (3) Abdominal malignancy: Plan: Suspected ovarian origin. Unfortunately, biopsy cannot be undertaken because she takes Plavix. This is now on hold. Peritoneal biopsy can be done at a later date. Chest x-ray appears to show pulmonary metastases. CA125 and CA 19- 9 are pending. No need for oncology to be involved at this point because we do not have a tissue diagnosis yet (4) Cancer with pulmonary metastases: Plan: Suspect ovarian origin. She will need biopsy and tissue diagnosis at a later date. Plavix is now on hold (5) Diarrhea: Plan: Resolved. (6) CAD (coronary artery disease): Plan: Stable. Continue aspirin, plavix, and metoprolol (7) DMII (diabetes mellitus, type 2): Plan: Diabetic diet. Metformin is on hold. Sliding scale coverage. Plan Anticipated discharge to home tomorrowAugust 19, on Lovenox 1 mg/kg subcutaneously every 12 hours. She will see her PCP as soon as possible who can arrange outpatient peritoneal biopsy and subsequent referral to oncology. Plavix will remain on hold. Admission and Anticipated Discharge Date Admission Date: August 17, 2023 Subjective Alert and oriented. Currently asymptomatic. COVID-positive but her had COVID several weeks ago and she has no current symptoms. Fortunately she is not hypoxic. Bilateral lower extremity DVTs seen on venous Doppler. I spoke to the son and [id number]. Unfortunately, peritoneal biopsy cannot be done for several days because she is on Plavix which is now on hold. Heparin drip has been converted to Lovenox 1 mg/kg subcutaneously every 12 hours. She will go home tomorrow, August 19, and follow-up with her PCP who can arrange peritoneal biopsy at a later date. Cardiac echo reveals normal ejection fraction with diastolic dysfunction. Otherwise unremarkable. Parenteral magnesium replacement ordered. Review of Systems 2 Review of Systems: Constitutional-no fever or chills ENT-no blurred vision, no double vision, no epistaxis, no sore throat Respiratory-no cough, no wheezing, no shortness of breath Cardiac-no palpitations, no chest pain, no syncope GI-no nausea, vomiting, diarrhea, melena, hematochezia -no urinary retention, no urinary incontinence, no dysuria, no hematuria Musculoskeletal-no joint pain, no muscle tenderness Skin-no bruising, no rashes, no pruritus Neuro-no isolated weakness, no paresthesia, no weakness Psych-no depression, no anxiety Physical Exam 2 Physical Exam: General-alert and oriented x3, no fevers, no chills HEENT-head atraumatic and normocephalic, pupils equal and reactive to light, extraocular muscles intact Neck-no lymphadenopathy or thyromegaly, trachea midline Chest-clear to auscultation percussion. No rales wheezing or rhonchi Cardiac-regular rate and rhythm, normal S1 and S2 Abdomen-normal bowel sounds, nontender, no hepatosplenomegaly. Mildly distended Extremities-no cyanosis, clubbing, or edema Neuro-cranial nerves II through XII intact, motor and sensory function within normal limits, strength symmetrical, no focal deficits Psych-normal affect, normal mood Results & Data Results & Data Vital Signs (Past 12 Hours) Vital Signs Temp Pulse Pulse Resp BP Pulse Ox O2 Del Method 08/18/23 16:27 37.1 C 91 H 18 132/75 95 Room Air 08/18/23 11:44 36.8 C 84 18 126/63 96 Room Air 08/18/23 09:26 75 08/18/23 08:00 36.7 C 81 18 128/64 96 Room Air Laboratory Results 08/18/23 05:45 08/18/23 05:45 PG Care Time/CCT Total # of Minutes Spent Total Time Spent with Patient: Total time spent is greater than 50% in coordination of care (as documented) at patient's floor/unit and/or counseling patient: Coding Level of Care Code 45193 SUB INP/OBS CARE 3/50MIN Diagnoses Pulmonary embolism I26.99 Acute cor pulmonale presence: unspecified Chronicity: acute Pulmonary embolism type: unspecified DVT, bilateral lower limbs I82.403 Abdominal malignancy C76.2 Cancer with pulmonary metastases C78.00 Diarrhea R19.7 CAD (coronary artery disease) I25.10 DMII (diabetes mellitus, type 2) E11.9 (1) Pulmonary embolism Acute cor pulmonale presence: unspecified Chronicity: acute Pulmonary embolism type: unspecified Qualified Code(s): I26.99 - Other pulmonary embolism without acute cor pulmonale
[2023-08-18] MEDS: METOPROLOL SUCC 25MG EXT REL TAB PO SCH (22:09)
[2023-08-18] MEDS ORDERED: OPTIRAY 320 125ml IV ONE (22:38)
--- NOTE | 2023-08-18 23:35 | CT Scan Report ---
Exam(s): CTA CHEST IV Amt: 110 ml optiray 320 EXAM: CT Angiography Chest With Intravenous Contrast CLINICAL HISTORY: Pulmonary embolus. TECHNIQUE: Axial computed tomographic angiography images of the chest with intravenous contrast. CTDI is 14.79 mGy and DLP is 392.49 mGy-cm. Automated exposure control was utilized for the study. A dose lowering technique was utilized adhering to the principles of ALARA. MIP reconstructed images were created and reviewed. COMPARISON: Chest radiograph 08/17/2023. FINDINGS: Pulmonary arteries: Unremarkable. No pulmonary embolus. Aorta: Mild atherosclerosis. No thoracic aortic aneurysm. Great vessels of aortic arch: There is an approximately 50% stenosis of the origin of the left subclavian artery. Lungs: Numerous masslike consolidations of the periphery throughout both lungs are present. No cavitation. Pleural space: Unremarkable. No significant effusion. No pneumothorax. Heart: Unremarkable. No cardiomegaly. No significant pericardial effusion. No evidence of RV dysfunction. Bones/joints: There are degenerative changes of the spine. No acute fracture. Soft tissues: Unremarkable. Lymph nodes: Unremarkable. No enlarged lymph nodes. IMPRESSION: 1. No pulmonary embolus. 2. There is an approximately 50% stenosis of the origin of the left subclavian artery. 3. Numerous masslike consolidations of the periphery throughout both lungs are present. No cavitation. The differential includes but is not limited to organizing pneumonia, multifocal pneumonia and metastatic disease. Electronically signed by: Melody Capone MD 08/18/23 23:34 PM
[2023-08-19] MEDS: ENOXAPARIN INJ 60 MG/0.6 ML SYR SQ SCH (03:52)
[2023-08-19 04:50] LABS: Basophils # (auto) 0.05 K/uL (0.00-0.20); Basophils % (auto) 0.7 %; Eosinophils # (auto) 0.06 K/uL (0.00-0.50); Eosinophils % (auto) 0.8 %; Hematocrit (blood only) 32.7 % (37.0-47.0); Hemoglobin 10.8 g/dl (12.0-16.0); Immature Granulocytes # (auto) 0.05 K/uL (0.01-0.20); Immature Granulocytes % (auto) 0.7 %; Lymphocytes # (auto) 1.07 K/uL (1.20-3.40); Mean Corpuscular Hemoglobin 29.6 pg (25.0-34.0); Mean Corpuscular Volume 89.6 fL (80.0-100.0); Mean Platelet Volume 9.8 fL (9.4-12.4); Monocytes # (auto) 0.84 K/uL (0.11-0.59); Neutrophils # (auto) 5.56 K/uL (1.40-6.50); Neutrophils % (auto) 72.8 %; Platelet Count 292 K/uL (130-400); RDW Coefficient of Variation 14.4 % (11.5-14.5); RDW Standard Deviation 46.8 fL (36.4-46.3); Red Blood Count 3.65 M/uL (4.20-5.40); White Blood Count 7.63 K/ul (4.8-10.8)
[2023-08-19 05:10] LABS: BUN Creatinine Ratio 16.9 (10-20); Calcium 8.7 mg/dl (8.6-10.3); Creatinine Clr Calc Pharmacy 44.4 ml/min; Est GFR (African American) 75.6 ml/min; Est GFR (Non-African American) 65.2 ml/min; Potassium 4.7 mmol/L (3.5-5.1)
[2023-08-19 05:19] LABS: Partial Thromboplastin Ratio 1.1; Partial Thromboplastin Time 30.5 Seconds (21.0-31.0)
[2023-08-19] MEDS: PANTOprazole 40 MG TAB PO SCH (08:37)
[2023-08-19] MEDS: ATORVASTATIN 40 MG TAB PO SCH (08:37)
[2023-08-19] MEDS: INSULIN ASPART PER UNIT CHARGE SC SCH ×2 (08:47→12:12)
[2023-08-19] MEDS: MAGNESIUM OXIDE 400 MG TAB PO SCH (08:54)
[2023-08-19] MEDS ORDERED: ASPIRIN 81 MG ECTAB PO SCH (09:00)
[2023-08-19 12:00] VITALS: BP 125/69; PULSE 75; RESP 17; TEMP 97.7; O2SAT 90
--- NOTE | 2023-08-19 12:51 | Discharge Summary ---
Date of Service August 19, 2023 Admission HPI Per Admitting Provider Kiana is an 83 year old female with a PMH significant for DMII, CAD S/P PA in Aug 2022, hyperlipidemia, and GERD who presented to the [facility] ED on 08/17 at the recommendation of her PCP after having abnormal findings on outpatient Ct of the abd/pelvis earlier today. Per chart review, the patient went to see her PCP for multiple weeks of lower abdominal pain and diarrhea. Her PCP ordered a CT of the abd/pelvis w/con today which shows "1. 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 Small to moderate abdominal and pelvic ascites. The findings represent peritoneal spread of tumor. The primary tumor is not definitively identified however ovarian carcinoma is favored on a statistical basis. However, a pancreatic primary cannot be excluded given pancreatic ductal dilatation with abrupt cut off of the duct. No discrete pancreatic lesion by CT. These findings will be called/faxed to the ordering provider at time of dictation. 2. Numerous pleural and pulmonary metastases within the lower chest. Trace right pleural effusion. 3. Multiple subsegmental pulmonary emboli within the lower lungs. 4. No evidence for a bowel obstruction. Sigmoid diverticulosis. No evidence for acute diverticulitis.". She remained stable while in the ED. Labs were significant for a leukocytosis of 11 with neutrophil predominance of 9, and alk phos of 132. Chest xray was read as "1. Small pleural effusions with bibasilar consolidation. This results atelectasis and metastatic pleural disease when correlated with today's CT scan. 2. Additional pulmonary metastases are seen throughout both lungs.". Prior to admission the patient was given a 500 mL NSS bolus and started on a heparin drip. At the time of the exam the patient was sitting in bed in no acute distress with her family sitting bedside, history was obtained from all. She states that she has been having lower abdominal pain and non-bloody diarrhea for the past 2- 3 weeks. Of note, the patient's family states that since her PA last August she has been having issues with diarrhea which were initially thought to be due medication changes. She has lost approximately 30 lbs over the past 6 months. Over the past 2-3 months the patient has been having progressive earlier satiety and the feeling being full quickly after eating small amounts of food. She denies the sensation of food getting stuck while swallowing. She denies recent fever, chills, changes in vision, hearing, taste, smell, cough, SOB, vomiting, dysuria, hematuria, melena, bloody BM's, LE swelling , and recent trauma. I explained the findings of the CT abd/pelvis and the chest xray being concerning for metastatic cancer of unknown source at this time. I explained that we will get Oncology on board to assist with further evaluation and workup. We discussed code status, the patient wishes to be a Full Code for now. She would want her sons, Zully William ([phone]) and Easton William Jr. ([phone]) to make medical decisions for her if she cannot make them herself. Please refer to Dr. 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 No rales wheezing or rhonchi Cardiac-regular rate and rhythm, normal S1 and S2 Abdomen-normal bowel sounds, nontender, no hepatosplenomegaly. Mildly distended Extremities-no cyanosis, clubbing, or edema Neuro-cranial nerves II through XII intact, motor and sensory function within normal limits, strength symmetrical, no focal deficits Psych-normal affect, normal mood Discharge Data Allergies Allergy/AdvReac Type Severity Reaction Status Date / Time Penicillins Allergy Intermediate rash Verified 08/17/23 15:59 Sulfa (Sulfonamide AdvReac Intermediate lower ext Verified 08/17/23 15:59 Antibiotics) leg numbness Consultations 08/17/23 16:03 ED Decision to Admit Stat Ordered Studies 08/18/23 US venous doppler LE BI Routine 08/18/23 17:07 CT for pulmonary embolism PE [CT angio chest PE protocol] Urgent Hospital Course (1) Pulmonary embolism: Ruled out by chest CTA (2) DVT, bilateral lower limbs: Seen on venous Doppler evaluation. This is undoubtedly malignancy related. Heparin drip has been switched to Lovenox 1 mg/kg subcutaneously every 12 hours (3) Abdominal malignancy: Suspected ovarian origin. Unfortunately, biopsy cannot be undertaken because she takes Plavix. This is now on hold. Peritoneal biopsy can be done at a later date. Chest x-ray appears to show pulmonary metastases. CA125 and CA 19- 9 are pending. 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 She will need biopsy and tissue diagnosis at a later date. Plavix is now on hold (5) Diarrhea: Resolved. (6) CAD (coronary artery disease): Stable. Continue aspirin, plavix, and metoprolol (7) DMII (diabetes mellitus, type 2): Diabetic diet. Metformin is on hold. Restarted discharge sliding scale coverage. Plan Home today, August 19, on Lovenox twice daily. Follow-up with PCP who will make referral for intra-abdominal biopsy and tissue diagnosis of suspected ovarian malignancy anticipated discharge to home tomorrow, August 19, on Lovenox 1 mg/kg subcutaneously every 12 hours. She will see her PCP as soon as possible who can arrange outpatient peritoneal biopsy and subsequent referral to oncology. Plavix will remain on hold. 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 Stop Plavix. See primary care provider soon as possible for scheduling of abdominal biopsy for definitive tissue diagnosis of suspected ovarian cancer. Pending Studies at Discharge: Yes Studies:: CA125 and CA 199 levels Stand-Alone Forms: [employer], Smoking Cessation Medications and DC Order Prescriptions: New enoxaparin 60 mg/0.6 mL Syringe 50 mg subcut Q12H Qty: 60 0RF Continued pantoprazole 40 mg tablet,delayed release (DR/EC) 40 mg PO DAILY omega [id number]-fish oil [Fish Oil] 1,000 mg (120 mg-180 mg) capsule 1 cap PO DAILY aspirin [Adult Low Dose Aspirin] 81 mg tablet,delayed release (DR/EC) 81 mg PO [id number] Rx Instructions: Mon, wed, fri atorvastatin [Lipitor] 80 mg tablet 40 mg PO DAILY Rx Instructions: Patient says she takes a half tab daily. metoprolol succinate 25 mg tablet extended release 24 hr 25 mg PO QPM metformin 1,000 mg tablet 1,000 mg PO BID potassium chloride 20 mEq tablet extended release 10 meq PO DAILY Rx Instructions: States she takes 1/2 daily magnesium oxide 250 mg magnesium tablet 250 mg PO BID furosemide 20 mg tablet 20 mg PO DAILY Discontinued clopidogrel [Plavix] 75 mg tablet 75 mg PO DAILY Discharge Orders: Discharge Order (Routine); Ordered 08/19/23 Ordered By: José Miguel Rudolph Admission Data Admit Date/Time: 08/17/23 18:14 Attending Provider: José Miguel Rudolph Admit Provider: Lázaro Tinajero Primary Care Provider: Katerine Chang Other Providers: Lázaro Tinajero Coding Level of Care Code 08465 INP/OBS DISCH >30 MIN Diagnoses Pulmonary embolism I26.99 Acute cor pulmonale presence: unspecified Chronicity: acute Pulmonary embolism type: unspecified DVT, bilateral lower limbs I82.403 Abdominal malignancy C76.2 Cancer with pulmonary metastases C78.00 Diarrhea R19.7 CAD (coronary artery disease) I25.10 DMII (diabetes mellitus, type 2) E11.9
[2023-08-19 15:32] LABS: CA 125 210 U/mL (<35); Cancer Antigen 19-9 12502 U/mL (<34)
== END 2023-08-19 13:53 | disposition home or self-care (01) | DRG 374 ==
LOC: ED 14:18 → SUATTDRO 18:14 → EDINP 18:14 → 2E 19:32
DX: C56.9 Malignant neoplasm of unspecified ovary; I82.403 Acute embolism and thrombosis of unspecified deep veins of lower extremity, bilateral; E78.5 Hyperlipidemia, unspecified; I25.10 Atherosclerotic heart disease of native coronary artery without angina pectoris; I82.411 Acute embolism and thrombosis of right femoral vein; C78.6 Secondary malignant neoplasm of retroperitoneum and peritoneum; U07.1 COVID-19; R19.7 Diarrhea, unspecified; Z88.2 Allergy status to sulfonamides; C78.02 Secondary malignant neoplasm of left lung; C78.01 Secondary malignant neoplasm of right lung; Z79.899 Other long term (current) drug therapy; Z88.0 Allergy status to penicillin; E83.42 Hypomagnesemia; Z79.02 Long term (current) use of antithrombotics/antiplatelets; Z79.84 Long term (current) use of oral hypoglycemic drugs; I82.452 Acute embolism and thrombosis of left peroneal vein; Z95.5 Presence of coronary angioplasty implant and graft; Z87.891 Personal history of nicotine dependence; K21.9 Gastro-esophageal reflux disease without esophagitis; E11.9 Type 2 diabetes mellitus without complications; I82.441 Acute embolism and thrombosis of right tibial vein; Z80.0 Family history of malignant neoplasm of digestive organs; I82.431 Acute embolism and thrombosis of right popliteal vein; Z79.82 Long term (current) use of aspirin; I25.2 Old myocardial infarction